=== PATIENT | female | born 1955 | race Caucasian/White ===

== ENCOUNTER 2020-08-14 15:13 | Emergency (ER) | payer MEDICARE, OTHER, SELFPAY ==
[~2020-08-14] VITALS: Ht 142.2 cm; Wt 55.8 kg
--- NOTE | 2020-08-14 15:16 | NUR ---
PT BIBA AND PLACED IN BED 4.
--- NOTE | 2020-08-14 15:23 | NUR ---
PATIENT MOVED TO ER [facility]
[2020-08-14 15:26] VITALS: BP 163/68
[2020-08-14] MEDS ORDERED: NITROGLYCERIN 0.4 MG TAB SL ONE (15:50)
--- NOTE | 2020-08-14 16:11 | NUR ---
cardiac catheterization technician at bedside.
--- NOTE | 2020-08-14 16:14 | NUR ---
nuclear test technician at bedside.
--- NOTE | 2020-08-14 16:16 | NUR ---
BIBA FROM HOME C/O CHEST PAIN X1 HOUR. PT HAS BEEN NON COMPLIANT WITH MEDICATIONS X1 WEEK HX RENAL, DM, HTN, see chart for extensive hx ALlergies to codeine, penicillin
--- NOTE | 2020-08-14 16:19 | NUR ---
MATT SUTTON PERFORMED WALKED TO LAB.
[2020-08-14 16:38] LABS: BASOPHILS % (AUTO) 0.3 % (0.0-2.0); EOSINOPHILS # (AUTO) 0.2 K/uL (0-0.4); EOSINOPHILS % (AUTO) 2.1 % (0.0-4.0); LYMPHOCYTES # (AUTO) 0.6 K/uL (2.5-16.5); LYMPHOCYTES % (AUTO) 8.4 % (20.5-51.1); MEAN CORPUSCULAR HEMOGLOBIN 31 pg (27-31); MEAN CORPUSCULAR HGB CONC 32 g/dL (33-37); MEAN CORPUSCULAR VOLUME 94.2 fL (80-94); MONOCYTES # (AUTO) 0.7 K/uL (0.8-1.0); MONOCYTES % (AUTO) 9.5 % (1.7-9.3); NEUTROPHILS % (AUTO) 79.7 % (42.2-75.2); PLATELET COUNT (AUTO) 291 K/uL (140-450); RED CELL DISTRIBUTION WIDTH 15.2 % (11.6-13.7); WHITE BLOOD COUNT (AUTO) 7.5 K/uL (4.8-10.8)
--- NOTE | 2020-08-14 16:41 | NUR ---
Spoke with pt daughter Flora [phone], received extensive hx (see complete assessment comments under pmh). Daughter stated pt is dyalisis patient Tuesdays, , and Saturdays. She stated that pt received dyalisis this morning, Dr. Moran made aware.
[2020-08-14 16:44] LABS: HEMATOCRIT 19.8 % (36-48); HEMOGLOBIN 6.4 g/dL (12.0-16.0)
--- NOTE | 2020-08-14 16:47 | NUR ---
Critical lab values reported to Dr. Moran Hgb 6.4 Hct 19.8
--- NOTE | 2020-08-14 16:50 | NUR ---
Pt moved to bed 7.
[2020-08-14 17:03] LABS: ALBUMIN 3.7 g/dL (3.4-5.0); ANION GAP 14.5 (8-16); CARBON DIOXIDE 27.5 mmol/L (21-32); TOTAL BILIRUBIN 0.6 mg/dL (0.0-1.0)
[2020-08-14 17:12] LABS: CREATININE 4.4 mg/dL (0.6-1.3); PROTHROMBIN TIME 10.4 secs (10.8-13.4)
--- NOTE | 2020-08-14 17:36 | NUR ---
Dr. Moran at pt bedside for evaluation. U/S for IV placement.
--- NOTE | 2020-08-14 17:50 | NUR ---
Type and screen drawn by Dr. Moran during IV insertion, walked to lab.
[2020-08-14] MEDS ORDERED: fentaNYL citrate 0.05 MG/ML VIAL IVP ONE (17:55)
--- NOTE | 2020-08-14 18:36 | NUR ---
.Spoke with Flora, pt daughter for pt updates regarding pending transfusion.
--- NOTE | 2020-08-14 18:38 | NUR ---
Pt resting, eyes closed, visible equal rise and fall of chest. VSS, will continue to monitor.
--- NOTE | 2020-08-14 19:08 | NUR ---
Consent received from pt for blood transfusion, Dr. Moran signed, placed in chart.
--- NOTE | 2020-08-14 19:18 | NUR ---
Gave report to JERROD Palma, transfered care at this time.
--- NOTE | 2020-08-14 20:45 | NUR ---
PT PLACED ON 2L NC. SPO2 99%.
--- NOTE | 2020-08-14 20:48 | NUR ---
BLOOD TRANSFUSION INITIATED.
--- NOTE | 2020-08-14 21:03 | NUR ---
NO REACTION NOTED AFTER BLOOD TRANSFUSION INITIATION. PTR C/O OF NAUSEA AND PAIN PRIOR TO INITIATION OF BLOOD.
--- NOTE | 2020-08-14 21:03 | NUR ---
Note melisa in EDM - 08/14/20 at 2317 by [facility] NO REACTION NOTED AFTER BLOOD TRANSFUSION INITIATION. PTR C/O OF NAUSEA ND PAIN PRIOR TO INITIATION OF BLOOD.
[2020-08-14] MEDS ORDERED: HYDROcodone/APAP 5/325 MG 1 TAB TAB PO ONE (21:15)
[2020-08-14] MEDS ORDERED: guaiFENesin DM 200/20 MG-10 ML 10 ML UDC PO PRN (21:50)
[2020-08-14] MEDS ORDERED: POTASSIUM CHLORIDE 10 MEQ TABER PO PRN (21:50)
[2020-08-14] MEDS ORDERED: DOCUSATE SODIUM 100 MG GELCAP PO PRN (21:50)
[2020-08-14] MEDS ORDERED: ACETAMINOPHEN 325 MG TAB PO PRN (21:50)
[2020-08-14] MEDS ORDERED: ZOLPIDEM 5 MG TAB PO PRN (21:50)
[2020-08-14] MEDS: ONDANSETRON 4 MG/2 ML VIAL IM/IVP PRN (22:20)
[2020-08-14 22:25] LABS: APPEARANCE,URINE CLEAR (CLEAR); BILIRUBIN,URINE NEGATIVE (NEGATIVE); BLOOD, URINE 3+ (NEGATIVE); COLOR,URINE ORANGE (YELLOW); LEUKOCYTE ESTERASE ,URINE NEGATIVE (NEGATIVE); NITRITE, URINE POSITIVE (NEGATIVE); PH,URINE 6.5 (5.0-9.0); UGLUCOSE NEGATIVE (NEGATIVE)
[2020-08-14 22:47] LABS: FREE T4 (FREE THYROXINE) 1.28 ng/dL (0.76-1.46); PHOSPHORUS 3.9 mg/dL (2.5-4.9); THYROID STIMULATING HORMONE 0.83 uIU/mL (0.34-3.74)
--- NOTE | 2020-08-14 23:00 | NUR ---
BLOOD TRANSFUSION COMPLETE.
--- NOTE | 2020-08-14 23:10 | NUR ---
LAB AT BEDSIDE.
[2020-08-14 23:14] LABS: BARBITURATE, URINE NEGATIVE ng/ml (NEG <=200); BENZODIAZEPINE, URINE NEGATIVE ng/mL (NEG <=200); CANNABINOID, URINE POSITIVE ng/mL (NEG <=50); COCAINE, URINE NEGATIVE ng/mL (NEG <=300); OPIATE, URINE NEGATIVE ng/mL (NEG <=2000); PHENCYCLIDINE SCREEN,URINE NEGATIVE ng/mL (NEG <=25)
[2020-08-14 23:58] LABS: RBC,URINE 11-20 (MOD) /HPF (0-5); WBC,URINE 0-5 /HPF (0-5)
--- NOTE | 2020-08-15 00:05 | NUR ---
LAB CALLED [facility]: TROP IS 0.162 AND NAM MADE AWARE.
[2020-08-15] MEDS ORDERED: ASPIRIN 325 MG TAB PO ONE (00:35)
[2020-08-15] MEDS ORDERED: diphenhydrAMINE 50 MG/ML VIAL IVP SCH (01:15)
[2020-08-15] MEDS: HYDROcodone/APAP 7.5/325 MG 1 TAB PO PRN ×4 (01:49→19:04)
--- NOTE | 2020-08-15 02:12 | NUR ---
PT MOVED TO CHAIR
--- NOTE | 2020-08-15 04:23 | NUR ---
GAVE PT AMBIEN D/T HAVING INSOMNIA. PT SLEEPING COMFORTABLY WITH EQUAL CHEST RISE AND FALL.
[2020-08-15 05:30] LABS: BASOPHILS % (AUTO) 0.5 % (0.0-2.0); EOSINOPHILS # (AUTO) 0.3 K/uL (0-0.4); HEMATOCRIT 21.9 % (36-48); HEMOGLOBIN 7.4 g/dL (12.0-16.0); LYMPHOCYTES # (AUTO) 1.1 K/uL (2.5-16.5); LYMPHOCYTES % (AUTO) 15.6 % (20.5-51.1); MEAN CORPUSCULAR HEMOGLOBIN 32 pg (27-31); MEAN CORPUSCULAR HGB CONC 34 g/dL (33-37); MEAN CORPUSCULAR VOLUME 93.6 fL (80-94); MONOCYTES # (AUTO) 0.8 K/uL (0.8-1.0); MONOCYTES % (AUTO) 11.5 % (1.7-9.3); NEUTROPHILS # (AUTO) 4.8 K/uL (1.8-7.7); NEUTROPHILS % (AUTO) 68.4 % (42.2-75.2); PLATELET COUNT (AUTO) 257 K/uL (140-450); RED BLOOD CELL COUNT(AUTO) 2.34 MIL/uL (4.20-5.40); WHITE BLOOD COUNT (AUTO) 6.9 K/uL (4.8-10.8)
[2020-08-15 05:44] LABS: ANION GAP 17.5 (8-16); CARBON DIOXIDE 25.5 mmol/L (21-32)
--- NOTE | 2020-08-15 05:46 | NUR ---
PT MOVED TO BED #12
[2020-08-15 05:51] LABS: CREATININE 5.7 mg/dL (0.6-1.3)
--- NOTE | 2020-08-15 07:28 | NUR ---
Pt report given to JERROD PECK. Transfer of care at this time.
--- NOTE | 2020-08-15 07:43 | NUR ---
RECEIVED REPORT FROM JERROD COVARRUBIAS FOR CONTINUATION OF CARE.
[2020-08-15] MEDS ORDERED: ASPIRIN 325 MG TABEC PO SCH (09:00)
[2020-08-15] MEDS ORDERED: PANTOPRAZOLE 40 MG TABEC PO SCH (09:00)
[2020-08-15] MEDS: ONDANSETRON 4 MG/2 ML VIAL IM/IVP PRN ×3 (09:52→19:20)
[2020-08-15] MEDS ORDERED: ASPI-1822 PO (11:07)
[2020-08-15] MEDS ORDERED: NITR0.4T2 SL (11:07)
[2020-08-15] MEDS ORDERED: OMEP20EC11 PO (11:07)
[2020-08-15] MEDS ORDERED: ATI.5 PO (11:07)
[2020-08-15] MEDS ORDERED: GABA100C PO (11:07)
--- NOTE | 2020-08-15 11:20 | NUR ---
SOCIAL WORK NOTE: SW ATTEMPTED TO CONTACT PATIENT'S DAUGHTER, YADI RAUSCH [phone] TO COMPLETE ASSESSMENT. SW LEFT VM AND WILL FOLLOW UP. Addendum: 08/15/20 at 1326 by Landon Singh Patient's Orientation Unable To Assess Information Provided By YADI RAUSCH - DAUGHTER Comments SW WAS CONTACTED BY PATIENT'S DAUGHTER TO COMPLETE ASSESSMENT. Tooling Manager, Realtionship and Phone Number YADI SCANLON [phone] [facility] Power of Gas Fitter Helper No Does Patient Have a POLST No Identifying Problems No Social Work Triggers Is A Social Work Consult Needed No Mandate Report Filed No Explanation Of Identifying Problems PATIENT IS A 65-YEAR-OLD FEMALE ADMITTED FOR CHEST PAIN. PATIENT HAS PMHX OF HYPERTENSION AND ESRD ON DIALYSIS. PER PATIENT'S DAUGHTER, PATIENT HAS NO HISTORY OF MENTAL HEALTH OR SUBSTANCE ABUSE. Admitted From Home Pre-Admission Level Of Functioning Status Assist With ADL Level Of Functioning Comment PATIENT RECEIVES ASSISTANCE WITH MEAL PREPARATION, CLEANING, TRANSPORTATION TO PHYSICIAN APPOINTMENTS, TRANSFERRING PATIENT, AND OTHER DUTIES. PATIENT RECEIVES ASSISTANCE FROM CAREGIVER/, ANTONI RAUSCH. Prior Resources/Services Used In Last 12 Months [facility] Prior Resources/Service Comments PATIENT RECEIVES 20 HOURS A MONTH FROM [facility]. Prior DME Walker Wheelchair Dialysis Hemodialysis Name And Phone Number of Dialysis Facility [facility] ESRD Outpatient Days T Thu ESRD Outpatient Time [address] Lives With Spouse Patient Had Caregiver Yes Name and Contact Number Of Designated Caregiver ANTONI RAUSCH - [phone] Home Support No Caregiver Issues Financial Issues No Known Financial Issue Referral To The Financial Counselor Needed No Factors/Needs No D/C Needs Identified Explanation And Or Other Factors Affecting/Possible DC Needs PATIENT'S DAUGHTER STATED SHE WOULD ARRANGE FOR TRANSPORTATION HOME. Pt/Rep Participated In Discharge Plan Yes Patient/Family Agress With Discharge Plan Yes Discharge Plan Comments TENTATIVE DISCHARGE PLAN IS FOR PATIENT TO RETURN HOME. DC Plan Status Initiated
--- NOTE | 2020-08-15 11:34 | NUR ---
Pt requesting to speak to . Called and spoke to Dimitris and daughter Flora at bedside. Dimitrsi Davison-
--- NOTE | 2020-08-15 13:11 | NUR ---
RECEIVED REPORT FROM JERROD PECK FOR CONTINUATION OF CARE AT THIS TIME. PT IS LAYING DOWN ON HER RIGHT SIDE. PT IS CONNECTED TO THE CLINIC CMA SAO2@97%. BED IS LOCKED AND IN LOWEST POSITION. SIDE RAILS X1. WILL CONTINUE TO MONITOR.
--- NOTE | 2020-08-15 13:15 | NUR ---
SPOKE WITH THE PTS DAUGHTER, SHE CAME TO CHECK IN ON HER MOTHER. PTS DAUGHTER UPDATED ON SATUS OF THE PT. IT WAS MENTIONED THAT WE ARE STILL WAITING FOR A BED TO BE AVAILABLE ON THE UNIT
--- NOTE | 2020-08-15 13:22 | NUR ---
ADELSO TAKINSON: FAXED ORDER FOR TRANSFER TO [facility] FOR [facility]GRAM [facility]. Addendum: 08/15/20 at 1628 by Denia Madden ADELSO ATKINSON: RECEIVED A CALL FROM CAROLA AT [facility], HE STATED THAT THEY ARE AT CAPACITY RIGHT NOW AND CAN NOT ACCEPT ANY PATIENTS. TRANSFERRED CALL TO TO ANSWER CLINICAL QUESTIONS. Addendum: 08/15/20 at 1733 by Mariana Villar RECEIVED A CALL FROM SAVAGE SRIVASTAVA OF [facility], STATING THAT THEY DO NOT HAVE BEDS AT THIS TIME AND IS SUTHORIZING THE STAY WITH AUTH [id number]. HE STATED THAT WE CAN SEND REFERRAL TO OTHER HOSPITALS AND USE TEMP AUTH SAME US OUR AUTH. HE STATED THAT ONCE WE HAVE AN ACCEPTING, THEY CAN CALL [facility] DEPT TO REQUEST FOR A NEW AUTH AT [phone]. HE ALSO STATED THAT IT IS OK TO ADMIT PATIENT AND HAVE CARDIO CONSULT. DR. ALMANZAR MADE AWARE. PER DR. ALMANZAR, HE WILL ADMIT THE PATIENT AND HAVE CARDIO SEE THE PATIENT.
--- NOTE | 2020-08-15 14:05 | NUR ---
PT C/O NAUSEA AND PAIN 02/14 WILL ADMIN PRN NORCO AND ZOFRAN
[2020-08-15] MEDS ORDERED: NITROGLYCERIN 0.4 MG TAB SL PRN (14:10)
--- NOTE | 2020-08-15 14:44 | NUR ---
Note christineone in EDM - 08/15/20 at 1447 by ISELAAllan PT IS LAYING IN SEMI-FOWLERS POSITION. PT IS CONNECTED TO THE COMPUTER GAME DESIGNER. SAO2@ 98% ON 10 L NRB. PT IS NOT IN ANY ACUTE DISTRESS AT THIS TIME. SIDE RAILS X2 FOR PT PROTECTION. BED IS LOCKED AND IN LOWEST POSITION. PT STILL UNABLE TO PROVIDE URINE AT THIS TIME. BEDSIDE COMMODE IN PLACE. CALL LIGHT WITHIN REACH. WILL CONTINUE TO MONITOR.
--- NOTE | 2020-08-15 15:15 | NUR ---
PT IS RESTING ON HER LEFT SIDE IN SEMI FOWLERS POSITION. PT IS NOT IN ANY DISTRESS AT THIS TIME. BED IS LOCKED AND IN LOWEST POSITION. PT IS CONNECTED STUDY ABROAD COORDINATOR. SAO2@95%. WILL CONTINUE MONITOR.
--- NOTE | 2020-08-15 16:28 | NUR ---
PT IS LAYING ON HER LEFT SIDE SLEEPING. VISIBLE RISE AND FALL OF CHEST. PT CONNECTED TO THE CARDIAC MONITORL SAO2@97%. NO VISIBLE DISTRESS NOTED. BED IS LOCKED AND IN LOWEST POSITION. SIDE RAILSX1. WILL CONTINUE TO MONITOR.
[2020-08-15] MEDS ORDERED: GABAPENTIN 100 MG CAP PO SCH ×2 (17:00→21:00)
[2020-08-15] MEDS ORDERED: ATORVASTATIN 20 MG TAB PO SCH (17:00)
--- NOTE | 2020-08-15 17:32 | NUR ---
PT IS SITTING UPRIGHT IN BED C/O NAUSEA AFTER TAKING HER LIPITOR. PT IS SITTING UPRIGHT IN BED. BED IS LOCKED AND IN LOWEST POSITION. SIDE RAILSX1. WILL CONTINUE TO MONITOR.
--- NOTE | 2020-08-15 17:51 | NUR ---
SPOKE WITH KASSY, RETAIL DELIVERY DRIVER WITH [facility] IN REGARDS TO THE PT CURRENT MEDICATION LIST FOR POSSIBLE TRANSFER TO [facility]. HE STATED HE WILL CALL BACK WITH FURTHER INFORMATION
--- NOTE | 2020-08-15 18:30 | NUR ---
PT IS RESTING ON HER LEFT SIDE IN SEMI-FOWLERS POSITION. PT IS CONNECTED TO THE HAZARDOUS SUBSTANCES SCIENTIST. BED IS LOCKED AND IN LOWEST POSITION. SIDE RAILSX1. PT IS NOT IN ANY DISTRESS AT THIS TIME. CALL LIGHT WITHIN REACH. WILL CONTINUE TO MONITOR.
--- NOTE | 2020-08-15 19:00 | NUR ---
PT C/O PAIN AND NAUSEA AT THIS TIME. WILL ADMIN PRNS. PT IS SITTING UPRIGHT IN BED EATING HER DINNER. PT CONNECTED TO THE HELIARC WELDER. BED IS LOCKED AND IN LOWEST POSITION. SIDE RAILSX1. WILL CONTINUE TO MONITOR.
--- NOTE | 2020-08-15 19:30 | NUR ---
SPOKE WITH KASSY THE COORDINATE MEASURING MACHINE TECHNICIAN WITH [facility] HE STATED THE PT WILL BE MOVING TO [facility]-HE REQUESTED UPDATED V/S AND TO WAIT FOR SOMEONE TO CALL ME SO THAT I CAN GIVE REPORT TO
--- NOTE | 2020-08-15 20:00 | NUR ---
SPOKE WITH ALICIA THE CONTACT LENS FITTER HELPING THE CASE MANAGE WITH [facility]. SHE STATED THAT TRANSPORT FOR BED 12 TO GO TO [facility] [place] WILL BE HERE IN 60-[address]SINGH HAWLEY, ROOM #[id number]
--- NOTE | 2020-08-15 20:05 | NUR ---
PT IS SLEEPING WITH HOB IN LOW-FOWLERS POSITION. BED IS LOCKED AND IN LOWEST POSITION. PT CONNECTED TO THE REMELT PAN TANK OPERATOR. SIDE RAILSX1. WILL CONTINUE TO MONITOR AT THIS TIME.
--- NOTE | 2020-08-15 20:10 | NUR ---
CALLED [phone] TO GIVE REPORT TO JERROD LYONS FOR TRANSFER OF CARE TO [facility]
[2020-08-15] MEDS ORDERED: LORazepam 0.5 MG TAB PO SCH (21:00)
[2020-08-15] MEDS ORDERED: METOPROLOL 25 MG TAB PO SCH (21:00)
--- NOTE | 2020-08-15 22:10 | NUR ---
Pt. wants to leave AMA and signed AMA form. Notified and left Dr. Singleton a message to notify of AMA status. Awaiting for Dr. Singleton to sign AMA form.
--- NOTE | 2020-08-15 22:35 | NUR ---
NOTIFIED THE CONTAINER PACKER OPERATOR AT [facility] TO LET HIM KNOW THAT THE PT SIGNED THE AMA PAPERWORK AND IS READY TO LEAVE AND REFUSED TRANSPORT TO [facility]. PT IS AWARE THAT IF SHE GOES TO [facility] THAT SHE WILL STILL BE TRANSFERRED TO [facility]. PT STATED THAT SHE UNDERSTANDS AND WANTS TO GO HOME WITH HER AT THIS TIME
--- NOTE | 2020-08-15 22:43 | NUR ---
Spoke with Dr. Singleton about AMA form. Form is left in ER station. Per Dr. Singleton, he will sign in the morning.
[2020-08-15 22:55] VITALS: BP 170/65
--- NOTE | 2020-08-15 22:55 | NUR ---
Patient does not wish to proceed with medical care recommended by . Patient given information related to possible complications, up to and including , which could occur as a result of leaving hospital at this time. Patient verbalizes understanding of risks involved leaving against medical advice. Patient has signed AMA form.
[2020-08-16] MEDS ORDERED: PANTOPRAZOLE 40 MG TABEC PO SCH (09:00)
[2020-08-16] MEDS ORDERED: NON-FORMULARY ITEM (Omeprazole* (Prilosec*) 20 MG) PO SCH (09:00)
[2020-08-16] MEDS ORDERED: ASPIRIN 81 MG TAB.CHEW PO SCH (09:00)
== END 2020-08-15 22:55 | disposition left against medical advice (07) ==
LOC: MED 15:13 → MTU 21:39 → UNDOADMIN 21:39 → MTU 08-15 19:38 → MED 08-15 22:55
DX: I12.0 Hypertensive chronic kidney disease with stage 5 chronic kidney disease or end stage renal disease (principal); N18.6 End stage renal disease; R07.9 Chest pain, unspecified; R77.8 Other specified abnormalities of plasma proteins; D64.9 Anemia, unspecified; E87.70 Fluid overload, unspecified; Z99.2 Dependence on renal dialysis; Z88.0 Allergy status to penicillin; Z88.5 Allergy status to narcotic agent; Z98.890 Other specified postprocedural states
CPT/HCPCS: 36415; 36430; 71045; 80048; 80053; 80061; 80305; 81001; 82150; 83036; 83690; 83735; 83880; 84100; 84436; 84439; 84443; 84479; 84484; 85025; 85610; 85730; 86886; 86900; 86901; 86920; 87086; 87426; 93005; 96372; 96374; 96375; 99291; J1200; J1644; J2405; J3010; P9016